=== PATIENT | female | born 1975 | race Caucasian/White ===

== ENCOUNTER → 2024-03-16 09:31 | Outpatient (CLI) | payer OTHER, SELFPAY ==
[2024-03-16 19:46] LABS: Add Manual Diff / Slide Review NO; Basophils Absolute Auto 100 /uL (0-100); Basophils Percent Auto 1.4 % (0-2); Eosinophils Absolute Auto 100 /uL (0-450); Eosinophils Percent Auto 2.1 % (2-4); Hematocrit 42.6 % (36-46); Hemoglobin 14.5 g/dL (12.0-16.0); Lymphocytes Absolute Auto 2100 /uL (1100-4500); Lymphocytes Percent Auto 33.5 % (25-40); Mean Corpuscular Hemoglobin 31.9 PG (26-34); Mean Corpuscular Volume 93.6 fL (80-100); Monocytes Absolute Auto 400 /uL (0-900); Monocytes Percent Auto 7.3 % (3-14); Neutrophils Absolute Auto 3400 /uL (1500-7000); Neutrophils Percent Auto 55.7 % (50-75); Platelet Count 311 X10^3/uL (150-400); Red Blood Cell Count 4.55 X10^6/uL (4.0-5.2); Red Cell Distribution Width 13.9 % (11.6-14.8); White Blood Cell Count 6.1 X10^3/uL (4.5-11.0)
[2024-03-16 19:56] LABS: Cholesterol 194 mg/dL (140-199); HDL Cholesterol 87 mg/dL (40-60); LDL Cholesterol Calculated 93 mg/dL (<100); Triglycerides 68 mg/dL (35-150)
[2024-03-16 20:13] LABS: Free T4, Direct Thyroxine 1.03 ng/dL (0.78-2.19)
[2024-03-16 20:26] LABS: Hemoglobin A1C% w Est Avg Glu 4.9 % (4.0-6.0); Thyroid Stimulating Hormone 0.923 uIU/mL (0.47-4.68)
[2024-03-16 20:46] LABS: Vitamin B12 726 pg/mL (239-931)
== END ==
PROVIDERS: PCP Physician Assistant Medical; Visit Provider Nurse Practitioner Adult Health
DX: R53.83 Other fatigue (principal)
CPT/HCPCS: 80061; 82607; 83036; 84439; 84443; 85025